=== PATIENT | female | born 1960 | race African-American/Black ===

== ENCOUNTER 2016-10-30 11:02 | Inpatient (IN) | payer MEDICARE, OTHER ==
--- NOTE | ~2016-10-30 | HP ---
History And Physical [address] [place]. [address] NAME: FARHAN RUIZ : 58 STATUS : ADM Josh PAT#: [id number] AGE: 56 ADM/REG DATE : 10/30/16 MR#: [id number] REPORT SERV DATE: 10/30/16 DICTATED BY: HIEN LEIJA DATE: 10/30/16 REPORT STATUS : Draft TRANSCRIBED BY: MODL DATE: 10/30/16 DATE OF ADMISSION: 10/30/2016 HISTORY OF PRESENT ILLNESS: The patient is a 56-year-old female with a history of asthma, hypertension, diabetes, who presented to the emergency room with a complaint of shortness of breath. The patient states that her symptoms started about two days ago. States that, she has nebulizer machine at home which she uses frequently. States that, at the time when her symptoms started that she started using her nebulizer more frequently; however, her symptoms did not improve. She states upon awakening this morning and going to work, she had severe shortness of breath associated with chest tightening, where she decided to present to the emergency room. Upon presentation to the emergency room, preliminary workup including chest x-ray was performed, all were negative. However, her O2 saturation was in the 80s on room air, but responded appropriately on supplemental oxygen. Emergency room staff have tried weaning patient off oxygen, but had not been successful. Therefore, decision was made to admit the patient to the hospital for observation. At the time of my evaluation, the patient corroborated the above story. She denies any lightheadedness, dizziness, nausea, vomiting, fever, chills. She denies any chest pain, palpitations, lightheadedness, dizziness, or any syncopal episodes. She states that, she otherwise feels well and has no other complaints. REVIEW OF SYSTEMS: The patient denies any blurry vision, any eye pain. She denies any headaches, any lightheadedness, any dizziness. She denies any fevers, any chills. She denies any coughing. She denies any temperature intolerance. She denies any joint or muscle pain. She denies any rashes. She denies any urgency or frequency. She denies any lightheadedness or dizziness. The rest of review of systems was essentially negative. 14-point review of systems was performed. PAST MEDICAL HISTORY: Significant for hypertension, diabetes type 2. PAST SURGICAL HISTORY: The patient reports C5-C6 fusion. Also, reports a gastric sleeve in 2014. FAMILY HISTORY: Significant for hypertension and COPD. SOCIAL HISTORY: The patient is a and currently lives at home with her daughter. Reports, drinking alcohol socially. However, denies any tobacco or illicit drug use. ALLERGIES: THE PATIENT IS ALLERGIC TO CODEINE. PHYSICAL EXAMINATION: VITAL SIGNS: On presentation, blood pressure 155/114 with a pulse of 105, respiration rate 26, O2 saturation 92% on room air. GENERAL: The patient is lying in bed, appears stated age. Speaking in full sentences, in no acute distress. HEENT: Normocephalic, atraumatic. Extraocular motors intact. Moist oral mucosa. Pupils History And Physical [address] [address] NAME: FARHAN RUIZ : 58 STATUS : ADM Josh PAT#: [id number] AGE: 56 ADM/REG DATE : 10/30/16 MR#: [id number] REPORT SERV DATE: 10/30/16 DICTATED BY: HIEN LEIJA DATE: 10/30/16 REPORT STATUS : Draft TRANSCRIBED BY: JUSTIN DATE: 10/30/16 round and reactive to light and accommodation. No conjunctival pallor noted. No conjunctival injection noted. NECK: Trachea midline and symmetric. No JVD present. No thyromegaly noted. No lymph nodes palpated. CHEST: Nontender to palpation. No scars noted. CARDIOVASCULAR: Regular rate and rhythm. S1, S2. No murmurs, rubs, or gallops. LUNGS: Positive wheezing noted, but good air movement present. ABDOMEN: Positive bowel sounds, nontender, nondistended. No masses palpated. LOWER EXTREMITIES: No cyanosis. No clubbing. No edema. NEUROLOGIC: Alert and oriented x3. No focal deficits appreciated. LABORATORY DATA: WBC 10.0, hemoglobin 15.2, hematocrit 45.7 with an MCV of 94, platelets 195. Sodium 143, potassium 3.6, chloride 104, bicarb 31, BUN 11, creatinine 0.82 with a GFR of 92, glucose 107. Chest x-ray; impression, left mid lung atelectasis, small amount, nonspecific. ASSESSMENT/PLAN: 1. Asthma exacerbation. Plan; place the patient on supplemental oxygen and DuoNebs. Add Mucomyst to help with her congestion. 2. Hypoxia on room air secondary to asthma exacerbation. We will manage as #1 above. 3. Hypertension, uncontrolled with patient on amlodipine 10 mg p.o. daily and titrate as necessary. 4. Diabetes type 2. The patient states that she was a diabetic, however status post her gastric sleeve surgery with significant weight loss, her diabetes is not controlled, and she is currently on no medications. On presentation, her blood sugar was elevated. Plan, we will check A1c and monitor. 5. Code status. The patient will remain full code. 6. DVT prophylaxis will be with Lovenox. JE/MODL Hien Leija MD / [id number] CC: MD Radhames Davis MD
--- NOTE | ~2016-10-30 | DS ---
Discharge Summary [facility] [address] [facility] [place]. [address] NAME: FARHAN RUIZ : 58 STATUS : DIS IN PAT#: [id number] AGE: 56 ADM/REG DATE : 11/01/16 MR#: [id number] REPORT SERV DATE: 11/03/16 DICTATED BY: ROYER BREAUX DATE: 11/02/16 REPORT STATUS : Draft TRANSCRIBED BY: MODL DATE: 11/02/16 ADMISSION DATE: 11/01/2016 DISCHARGE DATE: 11/02/2016 PROCEDURES DONE: 10/30/2016, chest x-ray: Left mid lung base atelectasis, small amount. Nonspecific. REASON FOR ADMISSION: Shortness of breath. HISTORY OF HOSPITAL STAY: A 56-year-old black female with past medical history of asthma, hypertension, diabetes diet controlled, presenting with shortness of breath x2 days. The patient was admitted for further evaluation of shortness of breath. The patient states she has been using her nebulizer at home more frequently. In addition, she has been having some difficulty using her inhaler since they were powder form and she was having difficulty getting the medication in. With the patient not able to do her usual medications, the patient's shortness of breath was steadily getting worse to the point that the patient came to the hospital for further evaluation and treatment. The patient states that on the day that she went to work, her shortness of breath was so severe that she decided to drive to the hospital where she responded with supplemental oxygen once she arrived in the ER. At the time of presentation, the patient's O2 saturation was in the 80s. Subsequently, the patient was admitted for further evaluation of her shortness of breath and return of the asthma exacerbation. The patient was put on IV steroids which subsequently improved. In addition, the patient has been switched to nebulizers as well as inhalers with spacer which dramatically improved the patient's compliance with medication. Prior to discharge, the patient has asked that her medication be converted to inhalers with use of spacers in order to get maximum medications. DISPOSITION: The patient is feeling fine, no complaint. ACTIVITIES: As tolerated. DIET: Diabetic. INSTRUCTIONS UPON DISCHARGE: The patient will follow up with primary care within one to two weeks. MEDICATIONS UPON DISCHARGE: 1. Amlodipine 10 mg p.o. daily. 2. Albuterol inhaler two puffs q.4 hours p.r.n. 3. Neurontin 100 mg p.o. daily p.r.n. 4. Neurontin 300 mg p.o. q.h.s. p.r.n. 5. DuoNeb inhaled q.4 hours p.r.n. 6. Multivitamin one tab daily. 7. Fish oil, unknown strength, unknown frequency. 8. Zyrtec 5 mg p.o. daily p.r.n. 9. Tessalon 100 mg p.o. daily p.r.n. Discharge Summary [id number] [facility] [place]. [address] NAME: FARHAN RUIZ : 58 STATUS : DIS IN PAT#: [id number] AGE: 56 ADM/REG DATE : 11/01/16 MR#: [id number] REPORT SERV DATE: 11/03/16 DICTATED BY: ROYER BREAUX DATE: 11/02/16 REPORT STATUS : Draft TRANSCRIBED BY: MODL DATE: 11/02/16 10.Aleve 440 mg p.o. daily p.r.n. 11.Flonase one spray b.i.d. p.r.n. 12.Capsaicin cream, unknown frequency. 13.Dulera 200/5 two puffs b.i.d. p.r.n. 14.Albuterol inhaler two puffs q.4 hours p.r.n. DIAGNOSES UPON DISCHARGE: 1. Shortness of breath secondary to asthma exacerbation. 2. Asthma exacerbation. 3. Acute hypoxemic respiratory failure secondary to shortness of breath and asthma exacerbation. 4. Hypertension. 5. Diabetes type 2. FBSandy/JML Royer Breaux MD / [id number] CC: MD Radhames Valentine MD
[~2016-10-30 11:02] MED LIST: DETROL LA; VENTOLIN HFA INH
[2016-10-30 11:18] LABS: BASOPHILS 0.4 %; BASOPHILS ABSOLUTE 0.04 10/3/uL (0.0-0.16); EOSINOPHILS 12.1 %; EOSINOPHILS ABSOLUTE 1.21 10/3/uL (0.0-0.53); HEMATOCRIT 45.7 % (36.0-48.0); HEMOGLOBIN 15.2 g/dL (12.0-16.0); IMMATURE GRANULOCYTES 0.2 %; IMMATURE GRANULOCYTES ABSOLUTE 0.02 10/3/uL (0.0-0.11); LYMPHOCYTES 17.8 %; LYMPHOCYTES ABSOLUTE 1.78 10/3/uL (0.67-4.30); MEAN CORPUS HGB CONC 33.3 g/dL (32.0-36.0); MEAN CORPUSCULAR HEMOGLOB 31.3 pg (26.0-34.0); MEAN PLATELET VOLUME 9.7 fL (9.2-13.0); MONOCYTES 7.3 %; MONOCYTES ABSOLUTE 0.73 10/3/uL (0.21-1.20); NEUTROPHILS 62.2 %; NEUTROPHILS ABSOLUTE 6.22 10/3/uL (2.02-8.40); PLATELET COUNT 195 10/3/uL (150-400); RBC DISTRIBUTION WIDTH 13.7 % (12.0-16.0); RED CELL COUNT 4.86 10/6/uL (4.0-5.6)
[2016-10-30 11:23] LABS: ER CBC TAT 0 Hrs 13 Mins; MANUAL DIFF NO %
[2016-10-30 11:25] LABS: INTERNATIONAL NORMAL RATI 1.1 UNITS (-); PARTIAL THROMBO TIME 25.4 SEC (22.5-37.2); PROTIME (NOT ORD) 13.6 SEC (12.0-14.5)
[2016-10-30 11:36] LABS: BUN (BLOOD UREA NITROGEN) 11 MG/DL (6-23); CALCIUM, SERUM 8.8 MG/DL (8.5-10.4); CHEST PAIN PROFILE TAT 0 Hrs 26 Mins; CHLORIDE, SERUM 104 MMOL/L (96-112); CO2 (CARBON DIOXIDE) 31 MMOL/L (24-34); CREATININE 0.82 MG/DL (0.55-1.02); GFR AFRICAN AMERICAN 92 ML/MIN (>=60); GFR NON AFRICAN AMERICAN 79 ML/MIN (>=60); POTASSIUM, SERUM 3.6 MMOL/L (3.5-5.3); SODIUM, SERUM 143 MMOL/L (135-148); TROPONIN I <0.02 NG/ML (<0.05)
[2016-10-30 11:37] LABS: GLUCOSE, SERUM 107 MG/DL (60-99)
[2016-10-30] MEDS ORDERED: NEUR100 PO (13:17)
[2016-10-30] MEDS ORDERED: NEUR300 PO (13:18)
[2016-10-30] MEDS ORDERED: ATROVENTUD INH (13:30)
[2016-10-30] MEDS ORDERED: DELTADOSE (13:32)
[2016-10-30] MEDS ORDERED: PULMICORT90 MCG INH (13:34)
[2016-10-30] MEDS ORDERED: DUONEB INH (13:35)
[2016-10-30] MEDS ORDERED: FISH OIL (13:36)
[2016-10-30] MEDS ORDERED: THERA M PLUS PO (13:36)
[2016-10-30] MEDS ORDERED: CETIRIZINE HCL5 MG PO (13:37)
[2016-10-30] MEDS ORDERED: TESS PO (13:38)
[2016-10-30] MEDS ORDERED: ALEVE220 MG PO (13:39)
[2016-10-30] MEDS ORDERED: FLONASE NAS (13:40)
[2016-10-30] MEDS ORDERED: ASPERCREME ×2 (13:41→13:42)
[2016-10-30] MEDS ORDERED: CAPSAICIN CREAM (13:41)
[2016-10-30] MEDS ORDERED: LIDOCA (13:42)
[2016-10-31 06:48] LABS: BASOPHILS 0.1 %; BASOPHILS ABSOLUTE 0.01 10/3/uL (0.0-0.16); EOSINOPHILS 0 %; HEMATOCRIT 44.3 % (36.0-48.0); HEMOGLOBIN 14.5 g/dL (12.0-16.0); IMMATURE GRANULOCYTES 0.2 %; IMMATURE GRANULOCYTES ABSOLUTE 0.02 10/3/uL (0.0-0.11); LYMPHOCYTES ABSOLUTE 1.36 10/3/uL (0.67-4.30); MEAN CORPUS HGB CONC 32.7 g/dL (32.0-36.0); MEAN CORPUSCULAR HEMOGLOB 30.9 pg (26.0-34.0); MEAN CORPUSCULAR VOLUME 94.3 fL (80-100); MEAN PLATELET VOLUME 9.8 fL (9.2-13.0); MONOCYTES 6.3 %; MONOCYTES ABSOLUTE 0.72 10/3/uL (0.21-1.20); NEUTROPHILS 81.4 %; NEUTROPHILS ABSOLUTE 9.26 10/3/uL (2.02-8.40); PLATELET COUNT 206 10/3/uL (150-400); RBC DISTRIBUTION WIDTH 13.6 % (12.0-16.0); WHITE BLOOD CELLS 11.4 10/3/uL (4.5-10.5)
[2016-10-31 06:49] LABS: MANUAL DIFF NO %
[2016-10-31 07:02] LABS: A/G RATIO 0.8 (0.7-1.9); ALBUMIN 3.1 G/DL (3.5-5.0); ALKALINE PHOSPHATASE 63 U/L (45-117); BUN (BLOOD UREA NITROGEN) 11 MG/DL (6-23); CHLORIDE, SERUM 110 MMOL/L (96-112); CO2 (CARBON DIOXIDE) 28 MMOL/L (24-34); CREATININE 0.66 MG/DL (0.55-1.02); GFR AFRICAN AMERICAN 114 ML/MIN (>=60); GFR NON AFRICAN AMERICAN 98 ML/MIN (>=60); GLOBULIN 3.9 G/DL (2.5-4.1); GLUCOSE, SERUM 128 MG/DL (60-99); POTASSIUM, SERUM 4.2 MMOL/L (3.5-5.3); SGOT(AST) 15 U/L (5-40); SGPT(ALT) 20 U/L (5-65); SODIUM, SERUM 145 MMOL/L (135-148); TOTAL BILIRUBIN 0.2 MG/DL (0-1.2)
[2016-11-01 05:32] LABS: BASOPHILS 0.2 %; BASOPHILS ABSOLUTE 0.02 10/3/uL (0.0-0.16); EOSINOPHILS 0.2 %; EOSINOPHILS ABSOLUTE 0.03 10/3/uL (0.0-0.53); HEMATOCRIT 44.9 % (36.0-48.0); HEMOGLOBIN 14.3 g/dL (12.0-16.0); IMMATURE GRANULOCYTES 0.2 %; IMMATURE GRANULOCYTES ABSOLUTE 0.03 10/3/uL (0.0-0.11); LYMPHOCYTES 18.1 %; LYMPHOCYTES ABSOLUTE 2.28 10/3/uL (0.67-4.30); MEAN CORPUS HGB CONC 31.8 g/dL (32.0-36.0); MEAN CORPUSCULAR HEMOGLOB 30.3 pg (26.0-34.0); MEAN CORPUSCULAR VOLUME 95.1 fL (80-100); MEAN PLATELET VOLUME 10.2 fL (9.2-13.0); MONOCYTES 4.1 %; MONOCYTES ABSOLUTE 0.52 10/3/uL (0.21-1.20); NEUTROPHILS 77.2 %; NEUTROPHILS ABSOLUTE 9.75 10/3/uL (2.02-8.40); PLATELET COUNT 200 10/3/uL (150-400); RBC DISTRIBUTION WIDTH 13.7 % (12.0-16.0); RED CELL COUNT 4.72 10/6/uL (4.0-5.6); WHITE BLOOD CELLS 12.6 10/3/uL (4.5-10.5)
[2016-11-01 05:36] LABS: MANUAL DIFF NO %
[2016-11-01 05:53] LABS: A/G RATIO 0.8 (0.7-1.9); ALKALINE PHOSPHATASE 65 U/L (45-117); BUN (BLOOD UREA NITROGEN) 15 MG/DL (6-23); CALCIUM, SERUM 8.9 MG/DL (8.5-10.4); CHLORIDE, SERUM 105 MMOL/L (96-112); CO2 (CARBON DIOXIDE) 30 MMOL/L (24-34); CREATININE 0.75 MG/DL (0.55-1.02); GFR AFRICAN AMERICAN 103 ML/MIN (>=60); GFR NON AFRICAN AMERICAN 88 ML/MIN (>=60); GLUCOSE, SERUM 138 MG/DL (60-99); PHOSPHORUS, SERUM 3.4 MG/DL (2.5-4.5); POTASSIUM, SERUM 3.7 MMOL/L (3.5-5.3); SGOT(AST) 12 U/L (5-40); SGPT(ALT) 21 U/L (5-65); SODIUM, SERUM 144 MMOL/L (135-148); TOTAL BILIRUBIN 0.3 MG/DL (0-1.2)
[2016-11-02 06:53] LABS: BASOPHILS 0.3 %; BASOPHILS ABSOLUTE 0.03 10/3/uL (0.0-0.16); BUN (BLOOD UREA NITROGEN) 14 MG/DL (6-23); CALCIUM, SERUM 8.7 MG/DL (8.5-10.4); CHLORIDE, SERUM 106 MMOL/L (96-112); CO2 (CARBON DIOXIDE) 29 MMOL/L (24-34); EOSINOPHILS 0.6 %; EOSINOPHILS ABSOLUTE 0.06 10/3/uL (0.0-0.53); GFR AFRICAN AMERICAN 111 ML/MIN (>=60); GFR NON AFRICAN AMERICAN 96 ML/MIN (>=60); HEMATOCRIT 44.4 % (36.0-48.0); HEMOGLOBIN 14.5 g/dL (12.0-16.0); IMMATURE GRANULOCYTES 0.2 %; IMMATURE GRANULOCYTES ABSOLUTE 0.02 10/3/uL (0.0-0.11); MEAN CORPUS HGB CONC 32.7 g/dL (32.0-36.0); MEAN CORPUSCULAR HEMOGLOB 30.9 pg (26.0-34.0); MEAN CORPUSCULAR VOLUME 94.7 fL (80-100); MONOCYTES 5.5 %; MONOCYTES ABSOLUTE 0.59 10/3/uL (0.21-1.20); NEUTROPHILS 62.4 %; NEUTROPHILS ABSOLUTE 6.66 10/3/uL (2.02-8.40); PLATELET COUNT 201 10/3/uL (150-400); POTASSIUM, SERUM 3.9 MMOL/L (3.5-5.3); RBC DISTRIBUTION WIDTH 13.7 % (12.0-16.0); RED CELL COUNT 4.69 10/6/uL (4.0-5.6); SODIUM, SERUM 143 MMOL/L (135-148); WHITE BLOOD CELLS 10.7 10/3/uL (4.5-10.5)
[2016-11-02 06:54] LABS: GLUCOSE, SERUM 84 MG/DL (60-99); MANUAL DIFF NO %
[2016-11-02] MEDS ORDERED: NORV10 PO (17:39)
[2016-11-02] MEDS ORDERED: DULERA 200 MCG/13 GM INH (17:40)
[2016-11-02] MEDS ORDERED: VENTOLIN HFA INH (17:41)
== END 2016-11-02 19:30 | disposition home or self-care (01) | DRG 189 ==
LOC: ER 11:02 → 7NO 15:04
PROVIDERS: Emergency Medicine; Hospitalist
DX: J96.01 Acute respiratory failure with hypoxia (principal); J45.901 Unspecified asthma with (acute) exacerbation; I10 Essential (primary) hypertension; E11.9 Type 2 diabetes mellitus without complications
CPT/HCPCS: 71010; 80048; 80053; 80069; 83036; 83735; 84100; 84484; 85025; 85610; 85730; 93005; 94640; 94644; 96374; 99291; A9270-GY; J2930